=== PATIENT | male | born 1955 | race Caucasian/White ===

== ENCOUNTER 2024-04-24 16:44 | Emergency (ER) | payer OTHER, SELFPAY ==
[2024-04-24 16:45] VITALS: BP 169/101
[2024-04-24] MEDS: DECADRON 10 MG IV (18:37)
[2024-04-24] MEDS: TORADOL 15 MG IV (18:38)
[2024-04-24] MEDS: ULTRAM 50 MG PO (19:48)
--- NOTE | 2024-04-24 23:02 | ED.GENMED ---
History of Present Illness
General
Chief Complaint: Back Pain
Source: patient
Exam Limitations: none
Time Seen by Provider: 04/24/24 17:38
Nursing documentation reviewed up to this point in time: agreed with
History of Present Illness
History of Present Illness:
Patient to ED with complaint of low back pain. Reports pain has been ongoing since February but has become much worse over the past week. Seen by PCP on and placed on medrol dose pack with minimal improvement. Given Rx for tramadol but has not
taken med yet as he was concerned it would upset his stomach. Brought to ED by daughter for eval. Denies fever/chills, recent illnss. No bowel or bladder symptoms. No weakness in extremities, no saddle paresthesia
Past History
Past History
ED Past Medical History: GERD, HTN, Hypercholesterolemia, Other (BPH with Urinary retention) and Other (chronic sinus problems)
Social History
Personal:
Living: with family
Employment: Retired
Review of Systems
Review of Systems
Allergies reviewed?: Yes
All Other Systems: ROS reviewed and negative except as documented in HPI and ROS
Constitutional: Reports no symptoms
EENT: Reports no symptoms
Respiratory: Reports no symptoms
Cardiac: Reports no symptoms
ABD/GI: Reports no symptoms
: Reports no symptoms
Musculoskeletal: Reports back pain
Skin: Reports no symptoms
Neurological: Reports no symptoms
Psychiatric: Reports no symptoms
Phy Exam
General Physical Exam
General Presentation: well appearing and no apparent distress
General age: appears stated age
General Skin: warm and dry
General Habitus: normal
General Mental: alert
Neurological Exam
Neurological Exam: alert, oriented x3, no motor deficits, no sensory deficits and normal gait
Reflexes
Reflexes: +3: Left achilles and +3: Right achilles
Musculoskeletal Exam
Musculoskeletal Exam: neuro vasc intact
Skin Exam
Skin Exam: normal color, warm/dry and no rash
Psychiatric Exam
Psychiatric Exam: normal mood/affect
Course
Orders/Labs/Results
Orders:
Orders
04/24/24 18:11
Dexamethasone Sod Phosphate [Decadron] 10 mg IV NOW STA
Ketorolac [Toradol] 15 mg IV NOW STA
Lumbar Spine Complete, 4 View [CR Lumbar Spine Comp Min 4 Vw*] Urgent
Comment:
Reason For Exam: pain
04/24/24 19:25
Tramadol HCl [Ultram] 50 mg PO NOW STA
Vital Signs
Initial and Last Documented VS:
Initial Vital Signs
Temp Pulse Resp BP Pulse Ox
98 F 98 16 169/101 99
04/24/24 16:45 04/24/24 16:45 04/24/24 16:45 04/24/24 16:45 04/24/24 16:45
Last Documented Vital Signs
Temp Pulse Resp BP Pulse Ox
98 F 98 16 169/101 99
04/24/24 16:45 04/24/24 16:45 04/24/24 16:45 04/24/24 16:45 04/24/24 16:45
*Radiology
Radiology exam reviewed: radiology read reviewed
*Pulse Oximetry
Patient hypoxic: no
*Critical Care Note
Total Time (30-74mins, 75-104mins- exclusive of procedures): Not Applicable
ED Attending Note
-
Portions of this chart may have been created with voice recognition software.� Occasional wrong word or��sound alike� substitutions may have occurred due to the inherent limitations of voice recognition software.
Discharge Plan
Departure
Patient Disposition: Home (Routine Discharge)
Date of Disposition: 04/24/24
Time of Disposition: 19:25
Patient with high blood pressure during this ER visit?: No
Condition: Good
Covid-19: Not Applicable
Discharge Problem:
Low back pain
Instructions: Low Back Pain (DC), Using Cold for Pain
Prescriptions:
New
prednisone 10 mg Tablet
See Rx Instructions .ROUTE .COMPLEX Qty: 30 0RF
Rx Instructions:
Take By Mouth:
40 mg daily x3 days, 30 mg daily x3 days,
20 mg daily x3 days, 10 mg daily x3 days.
No Action
atorvastatin 40 MG tablet
40 mg PO DAILY
doxazosin [Cardura] 8 MG tablet
8 mg PO DAILY
ranitidine HCl [Zantac] 150 MG tablet
150 mg PO DAILY
fluticasone propionate 1 SPRAY spray,suspension
1 spray intranasal DAILY
lisinopril 2.5 MG tablet
2.5 mg PO DAILY
lorazepam 1 MG tablet
1 mg PO Q4HPRN PRN (Reason: for procedures)
levofloxacin 500 MG tablet
500 mg PO DAILY Qty: 14 0RF
Referrals:
Danis Wilson MD [Family Provider] - Follow up in 2-3 days
Interventions
Interventions:
*Risk Screen - Suicide Last Done: 04/24/24 16:45
*Nursing Disposition Last Done: 04/24/24 19:56
ED-Musculoskeletal Assessment Last Done: 04/24/24 18:30
Discharge Date and Time
Discharge Date/Time: 04/24/24 19:59
Print Language: NIGERIAN
== END 2024-04-24 19:59 | disposition home or self-care (01) ==
LOC: EMR 16:44
PROVIDERS: EMERGENCY PHYSICIAN Emergency Medicine; FAMILY PHYSICIAN Internal Medicine
DX: M54.50 Low back pain, unspecified (principal); I10 Essential (primary) hypertension
CPT/HCPCS: 99284; 96374; 96375; 72110

== ENCOUNTER 2024-09-14 06:44 | Emergency (ER) | payer OTHER, SELFPAY ==
[2024-09-14 07:01] VITALS: BP 148/83
[2024-09-14 07:59] VITALS: BMI 41.1
[2024-09-14 08:32] VITALS: BP 144/81
[2024-09-14] MEDS: TORADOL 30 MG IM (08:37)
[2024-09-14] MEDS: DECADRON 10 MG PO (08:37)
--- NOTE | 2024-09-14 09:18 | ED.MUSCINJ ---
HPI-Injury
General
Chief Complaint: Musculo-Skeletal Complaint
Source: patient
Exam Limitations: none
Time Seen by Provider: 09/14/24 08:11
Nursing documentation reviewed up to this point in time: agreed with
History of Present Illness-Injury
Initial Injury comments:
69-year-old male with history of chronic intermittent neck and back pain presents with muscle spasms on the right side of his neck posteriorly. He states he was sharpening his knife yesterday and then polishing his knives with a leather wheel
yesterday sitting in a hunched over position and ever since then the right side of his neck has been getting more more stiff and sore. He had trouble sleeping last night due to the pain. Ibuprofen is not helping. He states he gets significant
painful spasms intermittently and in between the spasms there is not much discomfort. He denies numbness or tingling or weakness in his arm. He denies pain with swallowing. He denies fever or chills.
Past History
Past History
ED Past Medical History: GERD, HTN, Hypercholesterolemia, Other (BPH with Urinary retention) and Other (chronic sinus problems, chronic intermittent neck and back pain)
ED Past Surgical History: Orthopedic and Other (Multiple hernia repairs)
Social History
Tobacco: Non-smoker
Alcohol: Occasional
Personal:
Living: with family
Employment: Retired
Review of Systems
Review of Systems
Allergies reviewed?: Yes
All Other Systems: ROS reviewed and negative except as documented in HPI and ROS
Constitutional: Denies fever or chills
Cardiac: Denies chest pain
ABD/GI: Denies abdominal pain or nausea
Musculoskeletal: Reports neck pain
Skin: Reports no symptoms
Neurological: Reports no symptoms
Phy Exam
Physical Exam
Physical Exam:
GENERAL: No acute distress. A&Ox3.
CONSTITUTIONAL: Afebrile.
EYES: clear, conjunctivae normal
ENMT: moist mucus membranes, Pharynx nl, TMs normal
Neck: no palpable masses, no lymphadenopathy
RESPIRATORY: Regular respirations, nonlabored, lungs clear.
CARDIOVASCULAR: Regular rate and rhythm, no murmurs, no rubs.
GI: Soft, nontender
MUSCULOSKELETAL: Tender to palpation right posterior-lateral paracervical muscles. No spasm on exam, moderately general limited ROM due to pain. Moves with ease. Well perfused.
SKIN: Warm, dry, pink
PSYCH: Normal mood and affect. Well kept, interactive and appropriate
NEUROLOGIC: Awake, alert and oriented. No focal neurological deficits
Injury Course
Orders/Labs/Results
Orders:
Orders
09/14/24 08:31
Dexamethasone [Decadron] 10 mg PO NOW STA
Ketorolac [Toradol] 30 mg IM NOW STA
MDM/Problems Addressed
Differential Diagnosis Includes:
torticollis, retropharyngeal abscess
MDM/Problems Addressed:
69-year-old male with history of chronic intermittent neck and back pain presents with muscle spasms on the right side of his neck posteriorly. He states he was sharpening his knife yesterday and then polishing his knives with a leather wheel
yesterday sitting in a hunched over position and ever since then the right side of his neck has been getting more more stiff and sore. He had trouble sleeping last night due to the pain. Ibuprofen is not helping. He states he gets significant
painful spasms intermittently and in between the spasms there is not much discomfort. He denies numbness or tingling or weakness in his arm. He denies pain with swallowing. He denies fever or chills.
Afebrile, NAD
No infectious symptoms,no pain with swallowing, no indication of abscess
History and exam consistent with torticollis, ST tenderness, no bony tenderness, n neuro deficits, no indication for imaging
Pt requesting steroids as these have helped in the past. He has used Flexeril and Ibuprofen with no improvement.
Rx for Prednisone, Valium sent to his pharmacy
Pt ambulated out with normal gait at discharge
*Critical Care Note
Total Time (30-74mins, 75-104mins- exclusive of procedures): Not Applicable
ED Attending Note
-
Portions of this chart may have been created with voice recognition software.� Occasional wrong word or��sound alike� substitutions may have occurred due to the inherent limitations of voice recognition software.
Discharge Plan
Departure
Patient Disposition: Home (Routine Discharge)
Date of Disposition: 09/14/24
Time of Disposition: 08:
Patient with high blood pressure during this ER visit?: No
Condition: Good
Discharge Problem:
Muscle spasms of neck
Instructions: Torticollis, Adult
Prescriptions:
New
diazepam [Valium] 5 mg tablet
5 mg PO BID PRN (Reason: muscle spasm) Qty: 6 0RF
prednisone 20 mg tablet
40 mg PO DAILY Qty: 6 0RF
No Action
atorvastatin 40 MG tablet
40 mg PO DAILY
doxazosin [Cardura] 8 MG tablet
8 mg PO DAILY
ranitidine HCl [Zantac] 150 MG tablet
150 mg PO DAILY
fluticasone propionate 1 SPRAY spray,suspension
1 spray intranasal DAILY
lisinopril 2.5 MG tablet
2.5 mg PO DAILY
lorazepam 1 MG tablet
1 mg PO Q4HPRN PRN (Reason: for procedures)
levofloxacin 500 MG tablet
500 mg PO DAILY Qty: 14 0RF
prednisone 10 mg Tablet
See Rx Instructions .ROUTE .COMPLEX Qty: 30 0RF
Rx Instructions:
Take By Mouth:
40 mg daily x3 days, 30 mg daily x3 days,
20 mg daily x3 days, 10 mg daily x3 days.
Referrals:
Danis Wilson MD [Family Provider] - As needed
Activity Restrictions/Additional Instructions:
As we discussed, heating pad for 20 minutes off and on throughout the day today and tomorrow is much as you can may reduce muscle spasm
Ibuprofen 600 mg, with food, every 6 hours as needed for mild to moderate pain
You may use the Valium 5 mg every 6 hours as needed for muscle spasm. This can make you sleepy and slow the reflexes so do not drive or operate any machinery within 8 hours of taking it.
You were given a dose of steroid called Decadron 10 mg here today. It will last for 3 days. It may take 12 to 24 hours to kick in so you may not feel much better until tomorrow.
You were given an injection of Toradol (antiinflammatory/analgesic) for pain.
I sent a prescription to your pharmacy for Prednisone to take 40 mg a day for 3 days, starting tomorrow.
Move the neck more and more as comfort permits so it does not get more stiff
See your doctor in 5 to 7 days if you are not much improved by then
Interventions
Interventions:
*Risk Screen - Suicide Last Done: 09/14/24 07:01
*Neglect/Abuse Screening Last Done: 09/14/24 07:01
ED- Fall Risk Assessment Last Done: 09/14/24 08:00
*ED COVID-19 Vaccine History Last Done: 09/14/24 08:00
*Nursing Disposition Last Done: 09/14/24 09:05
ED-Musculoskeletal Assessment Last Done: 09/14/24 08:00
Discharge Date and Time
Discharge Date/Time: 09/14/24 08:50
Print Language: ARMENIAN
== END 2024-09-14 08:50 | disposition home or self-care (01) ==
LOC: EMR 06:44
PROVIDERS: EMERGENCY PHYSICIAN Student in an Organized Health Care Education/Training Program; FAMILY PHYSICIAN Internal Medicine
DX: M62.838 Other muscle spasm (principal); I10 Essential (primary) hypertension; E78.00 Pure hypercholesterolemia, unspecified; K21.9 Gastro-esophageal reflux disease without esophagitis
CPT/HCPCS: 96372; 99284